=== PATIENT | female | born 1985 | race Caucasian/White ===

== ENCOUNTER 2019-02-01 03:28 | Inpatient (IN) | payer BC ==
[2019-02-01] MEDS ORDERED: Carboprost Tromethamine 250 MCG/1 ML Amp IM PRN (03:57)
[2019-02-01] MEDS ORDERED: Water For Irrigation,Sterile 1,000 ML Container IRR PRN (03:57)
[2019-02-01] MEDS ORDERED: Tranexamic Acid 1,000 MG in Sodium Chloride 0.9% 100 ML IV PRN (03:57)
[2019-02-01] MEDS ORDERED: Methylergonovine 0.2 MG/1 ML Amp IM PRN (03:57)
[2019-02-01] MEDS ORDERED: Sodium Chloride 0.9% 10 ML Syringe FLUSH PRN (03:57)
[2019-02-01] MEDS ORDERED: Sodium Chloride 0.9% 10 ML SDV IV PRN (03:57)
[2019-02-01] MEDS ORDERED: Sodium Chloride 0.9% 2.5 ML Syringe FLUSH PRN (03:57)
[2019-02-01] MEDS ORDERED: Butorphanol 1 MG/ML SDV IVPUSH PRN (03:57)
[2019-02-01] MEDS ORDERED: Lidocaine 1% 50 ML MDV INJECT PRN (03:57)
[2019-02-01] MEDS ORDERED: Misoprostol 200 MCG Tab PO PRN (03:57)
[2019-02-01] MEDS ORDERED: Nalbuphine 10 MG/1 ML Vial IVPUSH PRN (03:57)
[2019-02-01] MEDS ORDERED: Oxytocin/0.9 % Sodium Chloride 30 UNIT/500 ML BAG IV SCH (04:00)
[2019-02-01] MEDS ORDERED: Lactated Ringers 1,000 ML IV SCH (04:00)
[2019-02-01] MEDS ORDERED: Ropivacaine 0.2% 2 MG/ML 20 ML SDV ONE (05:01)
[2019-02-01] MEDS ORDERED: fentaNYL 100 MCG/2 ML SDV ONE (05:01)
[2019-02-01] MEDS ORDERED: Ropivacaine HCl/PF 100 ML ONE (05:02)
--- NOTE | 2019-02-01 05:40 | PCM.PREANE ---
Preanesthetic Assessment - Anesthesia/Transfusion/Family Hx Anesthesia History: Prior Anesthesia Without Reaction Family History of Anesthesia Reaction: No Transfusion History: Unknown Intubation History: Unknown - Review of Systems General: No Symptoms Pulmonary: No Symptoms Cardiovascular: No Symptoms Gastrointestinal: No Symptoms Neurological: No Symptoms Other: Reports: None - Physical Assessment NPO Status Date: 02/01/19 NPO Status Time: 05:00 (Clear liguids) Vital Signs: Nurses Flow Sheet ASA Class: 2 Mental Status: Alert & Oriented x3 Airway Class: Mallampati = 2 Dentition: Reports: Normal Dentition Thyro-Mental Finger Breadths: 3 Mouth Opening Finger Breadths: 3 ROM/Head Extension: Full Lungs: Clear to Auscultation Cardiovascular: Regular Rate - Lab Values: Laboratory Last Values WBC 14.18 K/uL (4.0-11.0) H 02/01/19 04:20 RBC 4.14 M/uL (4.30-5.90) L 02/01/19 04:20 Hgb 12.8 g/dL (12.0-16.0) 02/01/19 04:20 Hct 38.1 % (36.0-46.0) 02/01/19 04:20 MCV 92.0 fL (80.0-98.0) 02/01/19 04:20 MCH 30.9 pg (27.0-32.0) 02/01/19 04:20 MCHC 33.6 g/dL (31.0-37.0) 02/01/19 04:20 RDW Std Deviation 45.7 fl (28.0-62.0) 02/01/19 04:20 RDW Coeff of Gianna 14 % (11.0-15.0) 02/01/19 04:20 Plt Count 189 K/uL (150-400) 02/01/19 04:20 MPV 11.80 fL (7.40-12.00) 02/01/19 04:20 Nucleated RBC % 0.0 /100WBC 02/01/19 04:20 Nucleated RBCs # 0 K/uL 02/01/19 04:20 Blood Type A POSITIVE 02/01/19 04:20 Antibody Screen NEGATIVE 02/01/19 04:20 Cold Antibody Screen POSITIVE 02/01/19 04:20 - Allergies Allergies/Adverse Reactions: Allergies Allergy/AdvReac Type Severity Reaction Status Date / Time No Known Allergies Allergy Verified 04/18/18 09:38 - Blood Blood Available: No Product(s) Available: None - Anesthesia Plan Pre-Op Medication Ordered: None - Acknowledgements Anesthesia Type Planned: Epidural Pt an Appropriate Candidate for the Planned Anesthesia: Yes Alternatives and Risks of Anesthesia Discussed w Pt/Guardian: Yes Pt/Guardian Understands and Agrees with Anesthesia Plan: Yes Additional Comments: Discussed, ? answered, permit signed. Accepts and wishes to proceed. 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: - Infectious Disease History Infectious Disease History: Reports: Chicken Pox - HOME MEDS Home Medications: Home Meds Vit No.129/Iron/FA [ Tablet] 1 each PO 09/25/15 [History] - CURRENT (IN HOUSE) MEDS Current Meds: Current Medications Butorphanol Tartrate (Stadol) 1 mg IVPUSH Q1H PRN PRN Reason: Pain Carboprost Tromethamine (Hemabate Ds) 250 mcg IM ASDIRECTED PRN PRN Reason: Post Hemorrhage Lactated Ringer's (Ringers, Lactated) 1,000 mls @ 150 mls/hr IV ASDIRECTED LASHAE Oxytocin/Sodium Chloride (Oxytocin 30 Unit/500 Ml-Ns) 30 unit in 500 mls @ 555 mls/hr IV TITRATE LAS[facility] Tranexamic Acid 1,000 mg/ (Sodium Chloride) 110 mls @ 660 mls/hr IV ONETIME PRN PRN Reason: Bleeding Lidocaine HCl (Xylocaine 1%) 50 ml INJECT ONETIME PRN PRN Reason: Laceration repair Methylergonovine Maleate (Methergine) 0.2 mg IM ASDIRECTED PRN PRN Reason: Post Hemorrhage Misoprostol (Cytotec) 200 mcg PO ONETIME PRN PRN Reason: Post Hemorrhage Nalbuphine HCl (Nubain) 10 mg IVPUSH Q1H PRN PRN Reason: Pain (severe 7-10) Last Admin: 02/01/19 04:17 Dose: 10 mg Sodium Chloride (Saline Flush) 10 ml FLUSH ASDIRECTED PRN PRN Reason: Keep Vein Open Sodium Chloride (Saline Flush) 2.5 ml FLUSH ASDIRECTED PRN PRN Reason: Keep Vein Open Sodium Chloride (Normal Saline) 10 ml IV ASDIRECTED PRN PRN Reason: IV Use Sterile Water (Sterile Water For Irrigation) 1,000 ml IRR ASDIRECTED PRN PRN Reason: delivery Discontinued Medications Fentanyl (Sublimaze) Confirm Administered Dose 100 mcg .ROUTE .STK-MED ONE Stop: 02/01/19 05:02 Ropivacaine (Naropin 0.2%) Confirm Administered Dose 100 mls @ as directed .ROUTE .STAfluenta-MED ONE Stop: 02/01/19 05:03 Ropivacaine (Naropin 0.2%) Confirm Administered Dose 20 ml .ROUTE .STK-MED ONE Stop: 02/01/19 05:02
--- NOTE | 2019-02-01 05:53 | PCM.PRNOTE ---
- Free Text/Narrative Note: Called for Labor Epidural. 7cm, pain 10/10. Received Nubain with minimal relief. Discussed, ? answered, permit signed, wishes to proceed. Prep with chloroprep. Skin local 4ml 1% lido Space ID'd on first pass with air/saline mix. Rechecked with saline. Cath to 8cm without issues. Occlusive dressing. Secured. Test with 5ml 1.5% lido with 1:200k epi. NEGATIVE ASPIRATION/NEGATIVE TEST. Bolus given over 5 minutes. 8ml 0.2% Naropin + fentanyl 100 mcg. 05:27 infusion started of 0.2% Naropin at 8ml/hr with 4ml/q15 bolus. Pain 1/10. Tolerated well. no problems noted post.
[2019-02-01] MEDS ORDERED: Ibuprofen 400 MG Tab PO PRN (08:19)
[2019-02-01] MEDS ORDERED: Benzocaine/Menthol 20%-0.5% Spray 78 GM Cannister TOP PRN (08:19)
[2019-02-01] MEDS ORDERED: Lanolin 100% Cream 7 GM Tube TOP PRN (08:19)
[2019-02-01] MEDS ORDERED: Docusate Sodium 100 MG Cap PO PRN (08:19)
[2019-02-01] MEDS ORDERED: Acetaminophen 500 MG Tab PO PRN ×2 (08:19)
[2019-02-01] MEDS ORDERED: Bisacodyl 10 MG Supp RECTAL PRN (08:19)
[2019-02-01] MEDS ORDERED: Witch Hazel Medicated Pads 40/Jar TOP PRN (08:19)
[2019-02-01] MEDS: Ibuprofen 800 MG Tab PO PRN ×2 (14:22→20:18)
--- NOTE | 2019-02-01 15:22 | OR ---
SURGEON: Mj Lee MD DATE OF PROCEDURE: 02/01/2019 INDICATION: The patient is a 33-year-old G2, P 1-0-0-1, presenting in spontaneous labor with pelvic of 8/80/+1. She progressed after augmentation with AROM with moderate meconium to 10/100/+2. Category 1 tracing. Comfortable with an epidural and proceeded to push with contractions. PREOPERATIVE DIAGNOSES: 1. A simeon intrauterine at 40 weeks and 0 days. 2. Active second stage of labor. POSTOPERATIVE DIAGNOSES: 1. A simeon intrauterine at 40 weeks and 0 days. 2. Active second stage of labor. OPERATION PERFORMED: Normal spontaneous vaginal delivery. FINDINGS: Simeon in cephalic presentation. Female infant. Weight of 6 pounds 13 ounces. score 8 and 9. ESTIMATED BLOOD LOSS: 300 mL. ANESTHESIA: Epidural. ANESTHESIOLOGIST: Dr. Bruce Bales. DESCRIPTION OF PROCEDURE: The patient pushed with contractions for approximately 5 minutes. Category 1 heart rate with early decelerations. head delivered in occiput anterior position. Restituted ROT. Tight nuchal cord x1 was noted. Anterior shoulder was delivered easily followed by posterior shoulder and the remaining body. Nuchal cord was reduced after delivery. The baby was pink, crying and moving all extremities. Baby was placed on the maternal chest and assessed by nursery staff. Cord gases were obtained. Placenta was delivered with a gentle traction on the umbilical cord. First-degree perineal laceration was repaired with 3-0 Vicryl in the usual fashion. Bimanual massage was performed, fundus was firm and below the umbilicus. Bleeding was light. The patient tolerated the procedure well and instructions were given. ASH / CHRIS /[id number]
[2019-02-02] MEDS: Ibuprofen 800 MG Tab PO PRN (02:18)
--- NOTE | 2019-02-02 07:42 | PCM48HPAN ---
Post Anesthesia Note - EVALUATION WITHIN 48HRS OF ANESTHETIC Vital Signs in Normal Range: Yes Patient Participated in Evaluation: Yes Respiratory Function Stable: Yes Airway Patent: Yes Cardiovascular Function Stable: Yes Hydration Status Stable: Yes Pain Control Satisfactory: Yes Nausea and Vomiting Control Satisfactory: Yes Mental Status Recovered: Yes Vital Signs: Last Vital Signs Temp 36.3 C 02/02/19 02:10 Pulse 94 02/02/19 02:10 Resp 18 02/02/19 02:10 BP 124/68 02/02/19 02:10 Pulse Ox 99 02/02/19 02:10
--- NOTE | 2019-02-02 07:42 | PCM.POSTAN ---
POST ANESTHESIA ASSESSMENT - VITAL SIGNS Vital Signs: Last Vital Signs Temp 36.3 C 02/02/19 02:10 Pulse 94 02/02/19 02:10 Resp 18 02/02/19 02:10 BP 124/68 02/02/19 02:10 Pulse Ox 99 02/02/19 02:10 - RESPIRATORY Respiratory Status: Respiratory Rate WNL - CARDIOVASCULAR CV Status: Pulse Rate WNL - GASTROINTESTINAL GI Status: No Symptoms - POST OP HYDRATION Hydration Status: Adequate & Stable
--- NOTE | 2019-02-02 08:03 | PCM.PNPP ---
- General Info Date of Service: 02/02/19 Subjective Update: 33yo P2 s/p stable , PPD 1 , normal lochia , , good pain control Functional Status: Reports: Pain Controlled, Tolerating Diet, Ambulating, Urinating - Review of Systems General: Reports: No Symptoms HEENT: Reports: No Symptoms Pulmonary: Reports: No Symptoms Cardiovascular: Reports: No Symptoms Gastrointestinal: Reports: No Symptoms Genitourinary: Reports: No Symptoms Musculoskeletal: Reports: No Symptoms Skin: Reports: No Symptoms Neurological: Reports: No Symptoms Psychiatric: Reports: No Symptoms - General Info Date of Service: 02/02/19 - Patient Data Vital Signs - Most Recent: Last Vital Signs Temp 36.3 C 02/02/19 02:10 Pulse 94 02/02/19 02:10 Resp 18 02/02/19 02:10 BP 124/68 02/02/19 02:10 Pulse Ox 99 02/02/19 02:10 Weight - Most Recent: 89.811 kg Lab Results - Last 24 Hours: Laboratory Results - last 24 hr 02/02/19 Range/Units 05:36 Hgb 11.6 L (12.0-16.0) g/dL Hct 35.9 L (36.0-46.0) % Med Orders - Current: Current Medications Acetaminophen (Tylenol Extra Strength) 500 mg PO Q4H PRN PRN Reason: Pain Acetaminophen (Tylenol Extra Strength) 1,000 mg PO Q4H PRN PRN Reason: Pain Benzocaine/Menthol (Dermoplast Pain Relief 20%-0.5% [place]) 78 gm TOP ASDIRECTED PRN PRN Reason: Perineal Comfort Measure Last Admin: 02/01/19 09:40 Dose: 1 canister Bisacodyl (Dulcolax) 10 mg RECTAL ONETIME PRN PRN Reason: Constipation Butorphanol Tartrate (Stadol) 1 mg IVPUSH Q1H PRN PRN Reason: Pain Carboprost Tromethamine (Hemabate Ds) 250 mcg IM ASDIRECTED PRN PRN Reason: Post Hemorrhage Docusate Sodium (Colace) 100 mg PO BID PRN PRN Reason: Constipation Last Admin: 02/02/19 02:18 Dose: 100 mg Emollient Ointment (Lansinoh Hpa) 0 gm TOP ASDIRECTED PRN PRN Reason: Sore Nipples Lactated Ringer's (Ringers, Lactated) 1,000 mls @ 150 mls/hr IV ASDIRECTED [facility] Last Admin: 02/01/19 07:30 Dose: 150 mls/hr Oxytocin/Sodium Chloride (Oxytocin 30 Unit/500 Ml-Ns) 30 unit in 500 mls @ 555 mls/hr IV TITRATE [facility] Last Admin: 02/01/19 07:55 Dose: 555 mls/hr Tranexamic Acid 1,000 mg/ (Sodium Chloride) 110 mls @ 660 mls/hr IV ONETIME PRN PRN Reason: Bleeding Ibuprofen (Motrin) 400 mg PO Q4H PRN PRN Reason: Pain Ibuprofen (Motrin) 800 mg PO Q6H PRN PRN Reason: Pain Last Admin: 02/02/19 02:18 Dose: 800 mg Lidocaine HCl (Xylocaine 1%) 50 ml INJECT ONETIME PRN PRN Reason: Laceration repair Methylergonovine Maleate (Methergine) 0.2 mg IM ASDIRECTED PRN PRN Reason: Post Hemorrhage Misoprostol (Cytotec) 200 mcg PO ONETIME PRN PRN Reason: Post Hemorrhage Nalbuphine HCl (Nubain) 10 mg IVPUSH Q1H PRN PRN Reason: Pain (severe 7-10) Last Admin: 02/01/19 04:17 Dose: 10 mg Sodium Chloride (Saline Flush) 10 ml FLUSH ASDIRECTED PRN PRN Reason: Keep Vein Open Sodium Chloride (Saline Flush) 2.5 ml FLUSH ASDIRECTED PRN PRN Reason: Keep Vein Open Sodium Chloride (Normal Saline) 10 ml IV ASDIRECTED PRN PRN Reason: IV Use Sterile Water (Sterile Water For Irrigation) 1,000 ml IRR ASDIRECTED PRN PRN Reason: delivery Last Admin: 02/01/19 07:50 Dose: 1,000 ml Witch Sarah (Tucks) 1 pad TOP ASDIRECTED PRN PRN Reason: comfort care Last Admin: 02/01/19 09:41 Dose: 1 tub Discontinued Medications Fentanyl (Sublimaze) Confirm Administered Dose 100 mcg .ROUTE .STK-MED ONE Stop: 02/01/19 05:02 Ropivacaine (Naropin 0.2%) Confirm Administered Dose 100 mls @ as directed .ROUTE .STK-MED ONE Stop: 02/01/19 05:03 Ropivacaine (Naropin 0.2%) Confirm Administered Dose 20 ml .ROUTE .STK-MED ONE Stop: 02/01/19 05:02 - Interaction Support Person: - Recovery Exam Fundal Tone: Firm Fundal Level: 2 Fingerbreadths Below Umbilicus Fundal Placement: Midline Lochia Amount: Scant Lochia Color: Rubra/Red Perineum Description: Other (see below) Other Perinuem Description: first degree with repair Episiotomy/Laceration: Approximated Bladder Status: Voiding Urinary Elimination: Voided - Exam General: Alert, Oriented HEENT: Pupils Equal Neck: Supple Lungs: Clear to Auscultation Cardiovascular: Regular Rate, Regular Rhythm GI/Abdominal Exam: Normal Bowel Sounds Extremities: Normal Inspection - Problem List & Annotations (1) Vaginal delivery SNOMED Code(s): 706159233 Code(s): O80 - ENCOUNTER FOR FULL-TERM UNCOMPLICATED DELIVERY Status: Acute Current Visit: No - Problem List Review Problem List Initiated/Reviewed/Updated: Yes - Assessment Assessment:: 33yo P2 s/p PPD1 stable , normal lochia - Plan Plan:: Routine Discharge home today
[2019-02-02 08:10] VITALS: BP 111/64; PULSE 92
== END 2019-02-02 11:36 | disposition home or self-care (01) | DRG 560 ==
LOC: MW.OBCHECK 03:28 → MW.OB 03:30 → MW.OBCHECK 03:57 → MW.OB 03:57 → OBSVTOIN 07:51 → MW.OB 17:09
PROVIDERS: ADMIT Obstetrics & Gynecology; ATTEND Obstetrics & Gynecology
PROC: 10E0XZZ Delivery of Products of Conception, External Approach (ICD-10-PCS; principal; 2019-02-01)
PROC: 0HQ9XZZ Repair Perineum Skin, External Approach (ICD-10-PCS; 2019-02-01)
PROC: 10907ZC Drainage of Amniotic Fluid, Therapeutic from Products of Conception, Via Natural or Artificial Opening (ICD-10-PCS; 2019-02-01)
PROC: 3E0R3BZ Introduction of Anesthetic Agent into Spinal Canal, Percutaneous Approach (ICD-10-PCS; 2019-02-01)
PROC: 00HU33Z Insertion of Infusion Device into Spinal Canal, Percutaneous Approach (ICD-10-PCS; 2019-02-01)
DX: O48.0 Post-term pregnancy (principal); O70.0 First degree perineal laceration during delivery; O76 Abnormality in fetal heart rate and rhythm complicating labor and delivery; O69.1XX0 Labor and delivery complicated by cord around neck, with compression, not applicable or unspecified; Z3A.40 40 weeks gestation of pregnancy; Z37.0 Single live birth; O77.0 Labor and delivery complicated by meconium in amniotic fluid; Z79.899 Other long term (current) drug therapy
CPT/HCPCS: 36415; 51702; 59025; 59409; 85014; 85018; 85027; 86156; 86850; 86900; 86901; A9270-GY; J2300; J2590; J2795; J3010; J7120